=== PATIENT | female | born 1975 | race Two or more races ===

== ENCOUNTER 2024-02-18 05:42 | Emergency (ER) | payer MEDICAID, OTHER ==
[~2024-02-18] VITALS: Ht 154.9 cm; Wt 64.0 kg
[2024-02-18 06:36] VITALS: BP 141/100; PULSE 89; RESP 18; TEMP 98.6; O2SAT 99
[2024-02-18] MEDS ORDERED: PRED20TA2 PO (06:54)
== END 2024-02-18 07:09 | disposition home or self-care (01) ==
LOC: ER 05:42
DX: R22.0 Localized swelling, mass and lump, head (principal)